=== PATIENT | male | born 1980 | race African-American/Black ===

== ENCOUNTER 2021-07-20 06:45 | Emergency (ER) | payer MEDICAID, OTHER ==
[~2021-07-20] VITALS: Ht 188 cm; Wt 80.7 kg
[2021-07-20 07:56] VITALS: BP 124/54
[2021-07-20] MEDS ORDERED: KETOROLAC TROMETH 60MG/2ML VIAL IM ONE (08:30)
== END 2021-07-20 08:42 | disposition home or self-care (01) ==
LOC: ER 06:45
DX: M54.42 Lumbago with sciatica, left side (principal); F12.10 Cannabis abuse, uncomplicated
CPT/HCPCS: 96372; 99283; J1885